=== PATIENT | male | born 1975 | race Hispanic/Latino ===

== ENCOUNTER 2020-08-14 11:40 | Emergency (ER) | payer BC ==
[~2020-08-14] VITALS: Ht 180.3 cm; Wt 145.1 kg
== END 2020-08-14 13:00 | disposition home or self-care (01) ==
LOC: ER 11:43
DX: U07.1 COVID-19 (principal); R06.02 Shortness of breath; R05 Cough; R07.89 Other chest pain
CPT/HCPCS: 99283